=== PATIENT | female | born 1950 | race African-American/Black ===

== ENCOUNTER 2017-05-20 06:02 | Emergency (ER) | payer OTHER, MEDICARE ==
[~2017-05-20] VITALS: Ht 165.1 cm; Wt 69.0 kg
[~2017-05-20 06:02] MED LIST: ATOR40TA28 PO; INS7030 SQ; INSU100C6 SQ; LISI1TAB13 PO
[2017-05-20] MEDS ORDERED: CYCLOBENZAPRINE HCL 10 MG TABLET PO ONE (06:30)
[2017-05-20] MEDS ORDERED: IBUPROFEN 600 MG TABLET PO ONE (06:30)
[2017-05-20 06:33] LABS: GLUCOSE,POINT OF CARE 152 MG/DL (70-110)
[2017-05-20 06:57] VITALS: BP 180/98
== END 2017-05-20 07:23 | disposition home or self-care (01) ==
LOC: EMS 06:03
DX: M62.838 Other muscle spasm (principal); I10 Essential (primary) hypertension; E11.9 Type 2 diabetes mellitus without complications; Y04.0XXA Assault by unarmed brawl or fight, initial encounter; Y93.89 Activity, other specified; Y92.89 Other specified places as the place of occurrence of the external cause; Y99.0 Civilian activity done for income or pay
CPT/HCPCS: 82948; 82962; 99283

== ENCOUNTER 2017-05-23 14:38 | Emergency (ER) | payer MEDICARE, OTHER ==
[~2017-05-23] VITALS: Ht 165.1 cm; Wt 70.0 kg
[2017-05-23] MEDS ORDERED: CYCL10 PO (14:48)
[2017-05-23] MEDS ORDERED: IBUP-1506 PO (14:48)
[2017-05-23 16:33] VITALS: BP 108/70
== END 2017-05-23 16:58 | disposition home or self-care (01) ==
LOC: EMS 14:38
DX: Z02.89 Encounter for other administrative examinations (principal); I10 Essential (primary) hypertension; E11.9 Type 2 diabetes mellitus without complications
CPT/HCPCS: 99281

== ENCOUNTER 2018-03-07 15:47 | Inpatient (IN) | payer MEDICARE, MEDICAID ==
[~2018-03-07] VITALS: Ht 165.1 cm; Wt 65.4 kg
[~2018-03-07 15:47] MED LIST changes: -ATOR40TA28 PO; +CYCL10 PO; +IBUP-1506 PO; -INS7030 SQ; -INSU100C6 SQ; -LISI1TAB13 PO
[2018-03-07] MEDS ORDERED: LISI-661 PO (15:50)
[2018-03-07 15:58] LABS: GLUCOSE,POINT OF CARE 98 MG/DL (70-110)
[2018-03-07] MEDS ORDERED: CloNIDine HCL 0.2 MG TABLET PO ONE (19:15)
[2018-03-07 19:34] LABS: BASOPHILS % (AUTO) 1.2 % (0.0-2.0); EOSINOPHILS % (AUTO) 4.9 % (1.0-6.0); HEMATOCRIT 29.8 % (36-46); HEMOGLOBIN 10.1 g/dL (12.0-16.0); LYMPHOCYTES # (AUTO) 1.9 K/uL (1.0-4.8); LYMPHOCYTES % (AUTO) 25.2 % (22.0-44.0); MEAN CORPUSCULAR HGB CONC 33.8 G/dL (31.0-37.0); MEAN CORPUSCULAR VOLUME 83 fL (80-100); MONOCYTES # (AUTO) 0.5 K/uL (0.1-1.0); MONOCYTES % (AUTO) 6.2 % (2.0-9.0); NEUTROPHILS # (AUTO) 4.7 K/uL (1.8-7.7); NEUTROPHILS % (AUTO) 62.5 % (40.0-70.0); PLATELET COUNT (AUTO) 221 K/uL (150-450); RED BLOOD CELL COUNT(AUTO) 3.59 MIL/uL (4.00-5.20); RED CELL DISTRIBUTION WIDTH 12.6 % (11.5-14.5)
[2018-03-07 19:42] LABS: CALCIUM, TOTAL 9.7 mg/dL (8.8-10.5); CREATININE 3.2 mg/dL (0.60-1.30); POTASSIUM 4.3 mmol/L (3.5-5.1)
[2018-03-07 19:48] LABS: ALBUMIN 3.1 g/dL (3.4-5.0); BILIRUBIN,TOTAL 0.3 mg/dL (0.1-1.0); TOTAL PROTEIN, SERUM 7.1 g/dL (6.4-8.2)
[2018-03-07] MEDS ORDERED: MORPHINE SULFATE 2 MG/ML SYRINGE IVP PRN (22:45)
[2018-03-07] MEDS ORDERED: ACETAMINOPHEN 325 MG TABLET PO PRN (22:45)
[2018-03-07] MEDS ORDERED: ALBUTEROL SULFATE 2.5 MG/0.5 ML NEB SOLUTION NEB PRN (22:45)
[2018-03-07] MEDS ORDERED: IPRATROPIUM BROMIDE 0.5 MG/2.5 ML NEB SOLUTION NEB PRN (22:45)
[2018-03-07] MEDS ORDERED: ZOLPIDEM TARTRATE 5 MG TABLET PO PRN (22:45)
[2018-03-07] MEDS ORDERED: ONDANSETRON HCL 4 MG/2 ML VIAL IVP PRN (22:45)
[2018-03-07] MEDS: DEXTROSE 5%-0.45% SODIUM CHL 1,000 ML IV SCH (23:20)
[2018-03-07 23:44] LABS: APPEARANCE,URINE CLEAR (CLEAR); BILIRUBIN,URINE NEGATIVE (NEGATIVE); GLUCOSE, URINE (UA) NEGATIVE (NEGATIVE); KETONES,URINE NEGATIVE (NEGATIVE); LEUKOCYTE ESTERASE ,URINE SMALL (NEGATIVE); NITRATE,URINE NEGATIVE (NEGATIVE); OCCULT BLOOD,URINE NEGATIVE (NEGATIVE); PROTEIN,URINE SEE CONFIRM (NEGATIVE); UROBILINOGEN,URINE 0.2 mg/dL (<=1.0)
[2018-03-08] VITALS (7 sets, daily range): BP systolic 144–193; BP diastolic 70–85
[2018-03-08 00:09] LABS: BACTERIA,URINE Rare /HPF (None Seen); RBC,URINE 0-2 /HPF (0-2); SQUAMOUS EPITHELIAL CELL,UR Rare /LPF (None Seen); SULFOSALICYLIC ACID,URINE 2+ (Negative)
[2018-03-08 07:47] LABS: BASOPHILS % (AUTO) 0.9 % (0.0-2.0); EOSINOPHILS % (AUTO) 6.9 % (1.0-6.0); HEMATOCRIT 27.4 % (36-46); HEMOGLOBIN 9.4 g/dL (12.0-16.0); LYMPHOCYTES # (AUTO) 1.1 K/uL (1.0-4.8); LYMPHOCYTES % (AUTO) 20.4 % (22.0-44.0); MEAN CORPUSCULAR HEMOGLOBIN 28.7 pg (26.0-34.0); MEAN CORPUSCULAR HGB CONC 34.1 G/dL (31.0-37.0); MEAN CORPUSCULAR VOLUME 84 fL (80-100); MONOCYTES # (AUTO) 0.4 K/uL (0.1-1.0); MONOCYTES % (AUTO) 7.9 % (2.0-9.0); NEUTROPHILS # (AUTO) 3.3 K/uL (1.8-7.7); NEUTROPHILS % (AUTO) 63.9 % (40.0-70.0); PLATELET COUNT (AUTO) 186 K/uL (150-450); RED BLOOD CELL COUNT(AUTO) 3.26 MIL/uL (4.00-5.20); RED CELL DISTRIBUTION WIDTH 12.6 % (11.5-14.5)
[2018-03-08 07:57] LABS: PROTHROMBIN TIME 10.3 SEC (9.4-11.6)
[2018-03-08 08:04] LABS: HEMOGLOBIN A1C 5.7 % (4.5-6.2)
[2018-03-08 08:10] LABS: ALBUMIN 2.8 g/dL (3.4-5.0); BILIRUBIN,TOTAL 0.3 mg/dL (0.1-1.0); CALCIUM, TOTAL 8.7 mg/dL (8.8-10.5); CHOL/HDL RATIO 1.8 (3.9-5.7); CREATININE 3.04 mg/dL (0.60-1.30); MAGNESIUM 2.1 mg/dL (1.80-2.40); PHOSPHORUS 4.2 mg/dL (2.5-4.9); POTASSIUM 4.3 mmol/L (3.5-5.1); THYROID STIMULATING HORMONE 1.67 uIU/mL (0.36-3.74); TOTAL PROTEIN, SERUM 6.6 g/dL (6.4-8.2)
[2018-03-08] MEDS: HydrALAZINE HCL 25 MG TABLET PO SCH ×3 (09:18→23:58)
[2018-03-08] MEDS: PANTOPRAZOLE SODIUM 40 MG DR TABLET PO SCH (09:18)
[2018-03-08] MEDS: DEXTROSE 5%-0.45% SODIUM CHL 1,000 ML IV SCH ×2 (09:19→20:23)
[2018-03-08] MEDS: CHOLECALCIFEROL (VIT D3) 1,000 UNITS TABLET PO SCH (11:34)
[2018-03-08] MEDS: AmLODIPine BESYLATE 10 MG TABLET PO SCH (11:34)
[2018-03-08] MEDS ORDERED: CHOLECALCIFEROL (VIT D3) 1,000 UNITS TABLET PO SCH (16:15)
[2018-03-08 23:30] LABS: GLUCOMETER DEV NAME(LOC) 6N 2D; GLUCOSE,POINT OF CARE 189 MG/DL (70-110)
[2018-03-09] VITALS (8 sets, daily range): BP systolic 147–203; BP diastolic 75–96
[2018-03-09 01:00] LABS: CREATININE,URINE RANDOM 21.5 mg/dL (30.0-125.0)
[2018-03-09 07:10] LABS: CALCIUM, TOTAL 8.4 mg/dL (8.8-10.5); CREATININE 3.04 mg/dL (0.60-1.30); POTASSIUM 4.5 mmol/L (3.5-5.1); THYROID STIMULATING HORMONE 2.13 uIU/mL (0.36-3.74)
[2018-03-09 07:36] LABS: GLUCOMETER DEV NAME(LOC) 6N 1E; GLUCOSE,POINT OF CARE 148 MG/DL (70-110)
[2018-03-09] MEDS: CHOLECALCIFEROL (VIT D3) 1,000 UNITS TABLET PO SCH (08:12)
[2018-03-09] MEDS: HydrALAZINE HCL 25 MG TABLET PO SCH (08:12)
[2018-03-09] MEDS: PANTOPRAZOLE SODIUM 40 MG DR TABLET PO SCH (08:12)
[2018-03-09] MEDS: CloNIDine HCL 0.1 MG TABLET PO PRN ×2 (08:13→17:20)
[2018-03-09] MEDS: AmLODIPine BESYLATE 10 MG TABLET PO SCH (08:13)
[2018-03-09 12:15] LABS: GLUCOMETER DEV NAME(LOC) 6N 1E; GLUCOSE,POINT OF CARE 175 MG/DL (70-110)
[2018-03-09] MEDS: HydrALAZINE HCL 50 MG TABLET PO SCH ×3 (14:05→20:01)
[2018-03-09] MEDS: OxyCODONE HCL/ACETAMINOPHEN 5-325 MG TABLET PO PRN ×2 (16:16→19:59)
[2018-03-09] MEDS: DEXTROSE 5%-0.45% SODIUM CHL 1,000 ML IV SCH (18:57)
[2018-03-09] MEDS: MAGNESIUM HYDROXIDE SUSPENSION 30 ML UDCUP PO PRN (20:01)
[2018-03-09] MEDS ORDERED: HydrALAZINE HCL 25 MG TABLET PO SCH (21:00)
[2018-03-10] VITALS (7 sets, daily range): BP systolic 147–194; BP diastolic 77–93
[2018-03-10] MEDS: DEXTROSE 5%-0.45% SODIUM CHL 1,000 ML IV SCH ×2 (05:16→16:44)
[2018-03-10] MEDS: OxyCODONE HCL/ACETAMINOPHEN 5-325 MG TABLET PO PRN (06:30)
[2018-03-10] MEDS: HydrALAZINE HCL 50 MG TABLET PO SCH ×3 (07:51→20:22)
[2018-03-10] MEDS: CHOLECALCIFEROL (VIT D3) 1,000 UNITS TABLET PO SCH (07:51)
[2018-03-10] MEDS: PANTOPRAZOLE SODIUM 40 MG DR TABLET PO SCH (07:51)
[2018-03-10] MEDS: AmLODIPine BESYLATE 10 MG TABLET PO SCH (07:51)
[2018-03-10] MEDS ORDERED: GELATIN SPONGE,ABSORBABLE 12-7 MM TP ONE (08:33)
[2018-03-10] MEDS ORDERED: LIDOCAINE HCL/PF 1% 30 ML VIAL ONE (08:33)
[2018-03-10] MEDS ORDERED: FentaNYL CITRATE-PF 100 MCG/2 ML VIAL ONE (08:33)
[2018-03-10] MEDS ORDERED: MIDAZOLAM HCL 2 MG/2 ML VIAL ONE (08:33)
[2018-03-10] MEDS ORDERED: FLUMAZENIL 0.1 MG/ML 5 ML VIAL IVP ONE (08:33)
[2018-03-10] MEDS ORDERED: NALOXONE HCL 0.4 MG/ML VIAL ONE (08:33)
[2018-03-10] MEDS ORDERED: LABETALOL HCL 5 MG/ML 20 ML VIAL IVP ONE (08:45)
[2018-03-10] MEDS ORDERED: MIDAZOLAM HCL 2 MG/2 ML VIAL IVP ONE (09:55)
[2018-03-10] MEDS ORDERED: FentaNYL CITRATE-PF 100 MCG/2 ML VIAL IVP ONE (09:55)
[2018-03-10] MEDS: MAGNESIUM HYDROXIDE SUSPENSION 30 ML UDCUP PO PRN (14:24)
[2018-03-10] MEDS: CloNIDine HCL 0.1 MG TABLET PO PRN (20:22)
[2018-03-11] VITALS (8 sets, daily range): BP systolic 139–186; BP diastolic 71–98
[2018-03-11] MEDS: DEXTROSE 5%-0.45% SODIUM CHL 1,000 ML IV SCH ×2 (03:06→16:05)
[2018-03-11] MEDS: BISACODYL 10 MG RECTAL RECTAL SUPPOSITORY PR PRN ×2 (03:13→09:07)
[2018-03-11] MEDS: MAGNESIUM HYDROXIDE SUSPENSION 30 ML UDCUP PO PRN (06:05)
[2018-03-11] MEDS: CloNIDine HCL 0.1 MG TABLET PO PRN (06:05)
[2018-03-11 06:32] LABS: GLUCOMETER DEV NAME(LOC) 6N 1E; GLUCOSE,POINT OF CARE 163 MG/DL (70-110)
[2018-03-11] MEDS: AmLODIPine BESYLATE 10 MG TABLET PO SCH (09:06)
[2018-03-11] MEDS: PANTOPRAZOLE SODIUM 40 MG DR TABLET PO SCH (09:06)
[2018-03-11] MEDS: HydrALAZINE HCL 50 MG TABLET PO SCH ×3 (09:12→20:24)
[2018-03-11] MEDS: CHOLECALCIFEROL (VIT D3) 1,000 UNITS TABLET PO SCH (09:12)
[2018-03-11 09:38] LABS: BASOPHILS % (AUTO) 0.2 % (0.0-2.0); HEMATOCRIT 28.2 % (36-46); HEMOGLOBIN 9.7 g/dL (12.0-16.0); LYMPHOCYTES # (AUTO) 0.8 K/uL (1.0-4.8); LYMPHOCYTES % (AUTO) 11.8 % (22.0-44.0); MEAN CORPUSCULAR HEMOGLOBIN 28.3 pg (26.0-34.0); MEAN CORPUSCULAR HGB CONC 34.5 G/dL (31.0-37.0); MEAN CORPUSCULAR VOLUME 82 fL (80-100); MONOCYTES # (AUTO) 0.8 K/uL (0.1-1.0); MONOCYTES % (AUTO) 11.6 % (2.0-9.0); NEUTROPHILS # (AUTO) 5.1 K/uL (1.8-7.7); NEUTROPHILS % (AUTO) 74.4 % (40.0-70.0); PLATELET COUNT (AUTO) 210 K/uL (150-450); RED BLOOD CELL COUNT(AUTO) 3.44 MIL/uL (4.00-5.20); RED CELL DISTRIBUTION WIDTH 12.8 % (11.5-14.5)
[2018-03-11 09:45] LABS: CALCIUM, TOTAL 8.3 mg/dL (8.8-10.5)
[2018-03-11 09:48] LABS: MAGNESIUM 2.4 mg/dL (1.80-2.40); PHOSPHORUS 3.3 mg/dL (2.5-4.9)
[2018-03-11 14:15] LABS: GLUCOMETER DEV NAME(LOC) 6N 1E; GLUCOSE,POINT OF CARE 157 MG/DL (70-110)
[2018-03-11] MEDS: OxyCODONE HCL/ACETAMINOPHEN 5-325 MG TABLET PO PRN (16:00)
[2018-03-11 23:43] LABS: GLUCOMETER DEV NAME(LOC) 6N 1E; GLUCOSE,POINT OF CARE 168 MG/DL (70-110)
[2018-03-12] MEDS: DEXTROSE 5%-0.45% SODIUM CHL 1,000 ML IV SCH ×2 (02:36→13:20)
[2018-03-12] MEDS: OxyCODONE HCL/ACETAMINOPHEN 5-325 MG TABLET PO PRN (02:42)
[2018-03-12 03:43] LABS: GLUCOMETER DEV NAME(LOC) 6N 2D; GLUCOSE,POINT OF CARE 181 MG/DL (70-110)
[2018-03-12 04:00] VITALS: BP 158/89
[2018-03-12] MEDS: CloNIDine HCL 0.1 MG TABLET PO PRN (07:58)
[2018-03-12] MEDS: HydrALAZINE HCL 50 MG TABLET PO SCH ×2 (07:59→16:16)
[2018-03-12] MEDS: PANTOPRAZOLE SODIUM 40 MG DR TABLET PO SCH (07:59)
[2018-03-12] MEDS: AmLODIPine BESYLATE 10 MG TABLET PO SCH (07:59)
[2018-03-12] MEDS: CHOLECALCIFEROL (VIT D3) 1,000 UNITS TABLET PO SCH (07:59)
[2018-03-12 08:24] VITALS: BP 184/102
[2018-03-12 09:19] VITALS: BP 160/87
[2018-03-12] MEDS ORDERED: METOPROLOL TARTRATE 25 MG TABLET PO SCH (09:30)
[2018-03-12 11:50] VITALS: BP_SYST 161; BP_SYST 180; BP_DIAS 87; BP_DIAS 94
[2018-03-12 11:54] LABS: GLUCOMETER DEV NAME(LOC) 6N 2D; GLUCOSE,POINT OF CARE 155 MG/DL (70-110)
[2018-03-12 11:58] LABS: GLUCOMETER DEV NAME(LOC) 6N 1E; GLUCOSE,POINT OF CARE 167 MG/DL (70-110)
[2018-03-12] MEDS ORDERED: VITAD1000 PO (14:47)
[2018-03-12] MEDS ORDERED: AMLO-512 PO (14:47)
[2018-03-12] MEDS ORDERED: HYDR-2924 PO (14:47)
[2018-03-12] MEDS ORDERED: METO25 PO (14:48)
== END 2018-03-12 17:03 | disposition home or self-care (01) | DRG 304 ==
LOC: EMS 15:51 → 6N 03-08 01:31
PROVIDERS: ADMIT Internal Medicine; ATTEND Internal Medicine
PROC: 0TB13ZX Excision of Left Kidney, Percutaneous Approach, Diagnostic (ICD-10-PCS; principal; 2018-03-10)
DX: I16.1 Hypertensive emergency (principal); N17.0 Acute kidney failure with tubular necrosis; N18.4 Chronic kidney disease, stage 4 (severe); E11.22 Type 2 diabetes mellitus with diabetic chronic kidney disease; E11.65 Type 2 diabetes mellitus with hyperglycemia; E55.9 Vitamin D deficiency, unspecified; D63.8 Anemia in other chronic diseases classified elsewhere; I12.9 Hypertensive chronic kidney disease with stage 1 through stage 4 chronic kidney disease, or unspecified chronic kidney disease; K21.9 Gastro-esophageal reflux disease without esophagitis; K58.9 Irritable bowel syndrome, unspecified; K73.9 Chronic hepatitis, unspecified; M19.90 Unspecified osteoarthritis, unspecified site; Z79.899 Other long term (current) drug therapy; Z82.49 Family history of ischemic heart disease and other diseases of the circulatory system
CPT/HCPCS: 50200; 70450; 76770; 82271; 82306; 82570; 83036; 83735; 84100; 84156; 84300; 84443; 84540; 93005; 99285; J2250; J2310; J2405; J3010; J3490

== ENCOUNTER 2018-05-02 13:03 | Emergency (ER) | payer MEDICARE, MEDICAID ==
[~2018-05-02] VITALS: Ht 165.1 cm; Wt 75.0 kg
[~2018-05-02 13:03] MED LIST changes: +AMLO-512 PO; -CYCL10 PO; +HYDR-2924 PO; -IBUP-1506 PO; +METO25 PO; +VITAD1000 PO
[2018-05-02 13:11] VITALS: BP 159/97
[2018-05-02] MEDS ORDERED: CHL25 PO (13:15)
[2018-05-02 13:24] LABS: GLUCOSE,POINT OF CARE 186 MG/DL (70-110)
== END 2018-05-02 15:30 | disposition left against medical advice (07) ==
LOC: EMS 13:04
DX: R53.1 Weakness (principal); R63.0 Anorexia; I12.9 Hypertensive chronic kidney disease with stage 1 through stage 4 chronic kidney disease, or unspecified chronic kidney disease; E11.22 Type 2 diabetes mellitus with diabetic chronic kidney disease; N18.9 Chronic kidney disease, unspecified; Z53.21 Procedure and treatment not carried out due to patient leaving prior to being seen by health care provider

== ENCOUNTER 2019-03-01 13:40 | Inpatient (IN) | payer MEDICARE, OTHER ==
[~2019-03-01] VITALS: Ht 157.5 cm; Wt 42.0 kg
[~2019-03-01 13:40] MED LIST changes: -AMLO-512 PO; +AMLO10TA7 PO; +CHL25 PO; +CLON-570 PO; -VITAD1000 PO
[2019-03-01 18:40] LABS: GLUCOMETER DEV NAME(LOC) 2WR.1; GLUCOSE,POINT OF CARE 136 MG/DL (70-110)
[2019-03-01 19:59] VITALS: BP 142/83
[2019-03-01] MEDS: HydrALAZINE HCL 50 MG TABLET PO SCH (20:34)
[2019-03-01] MEDS: PANTOPRAZOLE SODIUM 40 MG DR TABLET PO SCH (20:34)
[2019-03-01] MEDS: METOPROLOL TARTRATE 25 MG TABLET PO SCH (20:34)
[2019-03-01] MEDS: HEPARIN SODIUM,PORCINE 5,000 UNITS/ML VIAL SQ SCH (20:34)
[2019-03-01] MEDS: DOCUSATE SODIUM 100 MG CAPSULE PO SCH (20:34)
[2019-03-01] MEDS: SENNA 187 MG TABLET PO SCH (20:34)
[2019-03-01 22:15] LABS: GLUCOMETER DEV NAME(LOC) 2WR.1; GLUCOSE,POINT OF CARE 125 MG/DL (70-110)
[2019-03-01] MEDS: MELATONIN 3 MG TABLET PO PRN (23:21)
[2019-03-02] VITALS: BP 152/86
[2019-03-02] MEDS ORDERED: ASPI81 PO (02:34)
[2019-03-02] MEDS ORDERED: FAMO20 PO (02:34)
[2019-03-02] MEDS ORDERED: GABA-529 PO (02:34)
[2019-03-02 06:11] LABS: GLUCOMETER DEV NAME(LOC) 2WR.1; GLUCOSE,POINT OF CARE 69 MG/DL (70-110)
[2019-03-02 06:39] LABS: BASOPHILS % (AUTO) 0.3 % (0.0-2.0); EOSINOPHILS % (AUTO) 0.9 % (1.0-6.0); HEMATOCRIT 24.9 % (36-46); HEMOGLOBIN 8.4 g/dL (12.0-16.0); LYMPHOCYTES # (AUTO) 1.4 K/uL (1.0-4.8); LYMPHOCYTES % (AUTO) 15.6 % (22.0-44.0); MEAN CORPUSCULAR HEMOGLOBIN 27.9 pg (26.0-34.0); MEAN CORPUSCULAR HGB CONC 33.7 G/dL (31.0-37.0); MEAN CORPUSCULAR VOLUME 83 fL (80-100); MONOCYTES # (AUTO) 0.8 K/uL (0.1-1.0); MONOCYTES % (AUTO) 8.9 % (2.0-9.0); NEUTROPHILS # (AUTO) 6.6 K/uL (1.8-7.7); NEUTROPHILS % (AUTO) 74.3 % (40.0-70.0); PLATELET COUNT (AUTO) 193 K/uL (150-450); RED CELL DISTRIBUTION WIDTH 16.4 % (11.5-14.5)
[2019-03-02 06:50] LABS: GLUCOMETER DEV NAME(LOC) 2WR.2; GLUCOSE,POINT OF CARE 75 MG/DL (70-110)
[2019-03-02 06:56] LABS: ALBUMIN 2.5 g/dL (3.4-5.0); BILIRUBIN,TOTAL 0.3 mg/dL (0.1-1.0); CREATININE 3.57 mg/dL (0.60-1.30); POTASSIUM 3.9 mmol/L (3.5-5.1); TOTAL PROTEIN, SERUM 6.1 g/dL (6.4-8.2)
[2019-03-02 07:20] VITALS: BP 147/82
[2019-03-02] MEDS ORDERED: EPOETIN ALFA 10,000 UNITS/ML 2 ML VIAL SQ SCH (09:00)
[2019-03-02] MEDS: METOPROLOL TARTRATE 25 MG TABLET PO SCH ×2 (09:07→21:00)
[2019-03-02] MEDS: AmLODIPine BESYLATE 10 MG TABLET PO SCH (09:07)
[2019-03-02] MEDS: HEPARIN SODIUM,PORCINE 5,000 UNITS/ML VIAL SQ SCH ×3 (09:07→23:17)
[2019-03-02] MEDS: LEVOFLOXACIN 250 MG TABLET PO SCH (09:07)
[2019-03-02] MEDS: DOCUSATE SODIUM 100 MG CAPSULE PO SCH ×2 (09:07→21:00)
[2019-03-02] MEDS: HydrALAZINE HCL 50 MG TABLET PO SCH ×3 (09:07→21:00)
[2019-03-02 13:00] LABS: GLUCOMETER DEV NAME(LOC) 2WR.2; GLUCOSE,POINT OF CARE 93 MG/DL (70-110)
[2019-03-02] MEDS: ACETAMINOPHEN 325 MG TABLET PO PRN ×2 (13:23→18:08)
[2019-03-02] MEDS ORDERED: SODIUM CHLORIDE 0.9% 2,000 ML IV ONE (13:28)
[2019-03-02] MEDS ORDERED: VITAMIN B COMP/VIT C/FOLIC ACID CAPSULE PO SCH (17:00)
[2019-03-02 18:08] VITALS: BP 148/75
[2019-03-02 19:02] LABS: GLUCOMETER DEV NAME(LOC) 2WR.2; GLUCOSE,POINT OF CARE 88 MG/DL (70-110)
[2019-03-02] MEDS: PANTOPRAZOLE SODIUM 40 MG DR TABLET PO SCH (20:59)
[2019-03-02] MEDS: SENNA 187 MG TABLET PO SCH (21:00)
[2019-03-02] MEDS: CHLORHEXIDINE GLUCONATE 4% 118 ML TOPICAL LIQUID TP SCH (21:00)
[2019-03-02] MEDS: MELATONIN 3 MG TABLET PO PRN (21:00)
[2019-03-02 23:35] LABS: GLUCOMETER DEV NAME(LOC) 2WR.2; GLUCOSE,POINT OF CARE 112 MG/DL (70-110)
[2019-03-03] VITALS: BP 149/89
[2019-03-03 06:35] LABS: GLUCOMETER DEV NAME(LOC) 2WR.1; GLUCOSE,POINT OF CARE 86 MG/DL (70-110)
[2019-03-03 07:10] VITALS: BP 153/76
[2019-03-03] MEDS: VITAMIN B COMP/VIT C/FOLIC ACID CAPSULE PO SCH (08:18)
[2019-03-03] MEDS: LEVOFLOXACIN 250 MG TABLET PO SCH (08:18)
[2019-03-03] MEDS: HydrALAZINE HCL 50 MG TABLET PO SCH ×3 (08:18→20:47)
[2019-03-03] MEDS: DOCUSATE SODIUM 100 MG CAPSULE PO SCH ×2 (08:19→20:47)
[2019-03-03] MEDS: METOPROLOL TARTRATE 25 MG TABLET PO SCH ×2 (08:19→20:47)
[2019-03-03] MEDS: HEPARIN SODIUM,PORCINE 5,000 UNITS/ML VIAL SQ SCH ×3 (08:19→20:29)
[2019-03-03] MEDS: AmLODIPine BESYLATE 10 MG TABLET PO SCH (08:20)
[2019-03-03 11:25] VITALS: BP 145/93
[2019-03-03 12:30] LABS: GLUCOMETER DEV NAME(LOC) 2WR.2; GLUCOSE,POINT OF CARE 92 MG/DL (70-110)
[2019-03-03] MEDS: ASPIRIN 81 MG EC TABLET PO SCH (13:18)
[2019-03-03] MEDS: ACETAMINOPHEN 325 MG TABLET PO PRN (15:07)
[2019-03-03 17:56] LABS: GLUCOMETER DEV NAME(LOC) 2WR.1; GLUCOSE,POINT OF CARE 73 MG/DL (70-110)
[2019-03-03 18:00] VITALS: BP 141/80
[2019-03-03] MEDS: DOCUSATE SODIUM 283 MG/5 ML MINI-ENEMA PR PRN (20:10)
[2019-03-03] MEDS: CHLORHEXIDINE GLUCONATE 4% 118 ML TOPICAL LIQUID TP SCH (20:29)
[2019-03-03] MEDS: PANTOPRAZOLE SODIUM 40 MG DR TABLET PO SCH (20:47)
[2019-03-03] MEDS: SENNA 187 MG TABLET PO SCH (20:47)
[2019-03-03 22:20] LABS: GLUCOMETER DEV NAME(LOC) 2WR.1; GLUCOSE,POINT OF CARE 81 MG/DL (70-110)
[2019-03-03 22:21] LABS: GLUCOMETER DEV NAME(LOC) 2WR.2; GLUCOSE,POINT OF CARE 135 MG/DL (70-110)
[2019-03-04 00:02] VITALS: BP 152/86
[2019-03-04] MEDS: ACETAMINOPHEN 325 MG TABLET PO PRN (01:05)
[2019-03-04 06:20] LABS: GLUCOMETER DEV NAME(LOC) 2WR.1; GLUCOSE,POINT OF CARE 89 MG/DL (70-110)
[2019-03-04 07:53] VITALS: BP 151/73
[2019-03-04] MEDS: LEVOFLOXACIN 250 MG TABLET PO SCH (08:29)
[2019-03-04] MEDS: DOCUSATE SODIUM 100 MG CAPSULE PO SCH ×2 (08:30→20:39)
[2019-03-04] MEDS: EPOETIN ALFA 10,000 UNITS/ML 2 ML VIAL SQ SCH (08:30)
[2019-03-04] MEDS: ASPIRIN 81 MG EC TABLET PO SCH (08:30)
[2019-03-04] MEDS: HEPARIN SODIUM,PORCINE 5,000 UNITS/ML VIAL SQ SCH ×3 (08:30→20:25)
[2019-03-04] MEDS: VITAMIN B COMP/VIT C/FOLIC ACID CAPSULE PO SCH (08:30)
[2019-03-04] MEDS: AmLODIPine BESYLATE 10 MG TABLET PO SCH (08:31)
[2019-03-04] MEDS: METOPROLOL TARTRATE 25 MG TABLET PO SCH ×2 (08:31→20:25)
[2019-03-04] MEDS: HydrALAZINE HCL 50 MG TABLET PO SCH ×3 (08:31→20:24)
[2019-03-04 12:55] LABS: GLUCOMETER DEV NAME(LOC) 2WR.1; GLUCOSE,POINT OF CARE 100 MG/DL (70-110)
[2019-03-04 17:01] LABS: CHOL/HDL RATIO 1.5 (3.9-5.7); CREATININE 1.43 mg/dL (0.60-1.30); POTASSIUM 3.1 mmol/L (3.5-5.1); THYROID STIMULATING HORMONE 0.84 uIU/mL (0.36-3.74)
[2019-03-04 17:02] LABS: PHOSPHORUS 1.2 mg/dL (2.5-4.9)
[2019-03-04] MEDS ORDERED: SODIUM PHOS,M-BASIC-D-BASIC 10 MEQ in DEXTROSE 5%-WATER 50 ML IV ONE (17:15)
[2019-03-04 19:00] VITALS: BP 157/80
[2019-03-04] MEDS: ATORVASTATIN CALCIUM 40 MG TABLET PO SCH (20:24)
[2019-03-04] MEDS: PANTOPRAZOLE SODIUM 40 MG DR TABLET PO SCH (20:25)
[2019-03-04] MEDS: SENNA 187 MG TABLET PO SCH (20:38)
[2019-03-04] MEDS: CHLORHEXIDINE GLUCONATE 4% 118 ML TOPICAL LIQUID TP SCH (20:39)
[2019-03-04] MEDS: SOD FERRIC GLUC COMPLX/SUCROSE 125 MG in SODIUM CHLORIDE 0.9% 100 ML IV PRN (20:58)
[2019-03-04 21:49] VITALS: BP 159/78
[2019-03-05 00:06] VITALS: BP 160/84
[2019-03-05 06:31] LABS: GLUCOMETER DEV NAME(LOC) 2WR.2; GLUCOSE,POINT OF CARE 88 MG/DL (70-110)
[2019-03-05 07:29] LABS: CALCIUM, TOTAL 9.1 mg/dL (8.8-10.5); CREATININE 2.03 mg/dL (0.60-1.30); MAGNESIUM 1.4 mg/dL (1.80-2.40); PHOSPHORUS 1.7 mg/dL (2.5-4.9); POTASSIUM 3.2 mmol/L (3.5-5.1)
[2019-03-05 08:13] VITALS: BP 151/86
[2019-03-05] MEDS: HydrALAZINE HCL 50 MG TABLET PO SCH ×3 (08:58→20:53)
[2019-03-05] MEDS: METOPROLOL TARTRATE 25 MG TABLET PO SCH ×2 (08:58→20:53)
[2019-03-05] MEDS: AmLODIPine BESYLATE 10 MG TABLET PO SCH (08:58)
[2019-03-05] MEDS: LEVOFLOXACIN 250 MG TABLET PO SCH (08:59)
[2019-03-05] MEDS: VITAMIN B COMP/VIT C/FOLIC ACID CAPSULE PO SCH (08:59)
[2019-03-05] MEDS: HEPARIN SODIUM,PORCINE 5,000 UNITS/ML VIAL SQ SCH ×3 (08:59→20:53)
[2019-03-05] MEDS: DOCUSATE SODIUM 100 MG CAPSULE PO SCH ×2 (08:59→20:53)
[2019-03-05] MEDS: ASPIRIN 81 MG EC TABLET PO SCH (08:59)
[2019-03-05] MEDS ORDERED: POTASSIUM PHOS/SODIUM PHOS MIXTURE 1 POWDER PACKET PO ONE (10:45)
[2019-03-05] MEDS ORDERED: MAGNESIUM OXIDE 400 MG TABLET PO ONE (10:45)
[2019-03-05 16:20] VITALS: BP 160/94
[2019-03-05 20:52] VITALS: BP 163/95
[2019-03-05] MEDS: ATORVASTATIN CALCIUM 40 MG TABLET PO SCH (20:53)
[2019-03-05] MEDS: PANTOPRAZOLE SODIUM 40 MG DR TABLET PO SCH (20:53)
[2019-03-05] MEDS: SENNA 187 MG TABLET PO SCH (20:53)
[2019-03-05] MEDS: CHLORHEXIDINE GLUCONATE 4% 118 ML TOPICAL LIQUID TP SCH (21:01)
[2019-03-06 00:30] VITALS: BP 138/72
[2019-03-06] MEDS: MELATONIN 3 MG TABLET PO PRN (00:49)
[2019-03-06] MEDS ORDERED: FOLI0.8T2 PO (03:14)
[2019-03-06 06:14] LABS: CREATININE 3.1 mg/dL (0.60-1.30); MAGNESIUM 1.5 mg/dL (1.80-2.40); POTASSIUM 3.5 mmol/L (3.5-5.1)
[2019-03-06 06:41] LABS: GLUCOMETER DEV NAME(LOC) 2WR.2; GLUCOSE,POINT OF CARE 98 MG/DL (70-110)
[2019-03-06] MEDS: AmLODIPine BESYLATE 10 MG TABLET PO SCH (07:36)
[2019-03-06] MEDS: VITAMIN B COMP/VIT C/FOLIC ACID CAPSULE PO SCH (07:36)
[2019-03-06] MEDS: HEPARIN SODIUM,PORCINE 5,000 UNITS/ML VIAL SQ SCH ×3 (07:36→20:20)
[2019-03-06] MEDS: LEVOFLOXACIN 250 MG TABLET PO SCH (07:36)
[2019-03-06] MEDS: DOCUSATE SODIUM 100 MG CAPSULE PO SCH ×2 (07:36→20:20)
[2019-03-06] MEDS: HydrALAZINE HCL 50 MG TABLET PO SCH ×3 (07:36→20:20)
[2019-03-06] MEDS: ASPIRIN 81 MG EC TABLET PO SCH (07:36)
[2019-03-06] MEDS: METOPROLOL TARTRATE 25 MG TABLET PO SCH ×2 (07:36→20:20)
[2019-03-06 10:04] VITALS: BP 150/82
[2019-03-06 15:50] VITALS: BP 152/93
[2019-03-06] MEDS: DOCUSATE SODIUM 283 MG/5 ML MINI-ENEMA PR PRN (19:53)
[2019-03-06 20:16] VITALS: BP 156/83
[2019-03-06] MEDS: PANTOPRAZOLE SODIUM 40 MG DR TABLET PO SCH (20:20)
[2019-03-06] MEDS: SENNA 187 MG TABLET PO SCH (20:20)
[2019-03-06] MEDS: ATORVASTATIN CALCIUM 40 MG TABLET PO SCH (20:20)
[2019-03-06] MEDS: CHLORHEXIDINE GLUCONATE 4% 118 ML TOPICAL LIQUID TP SCH (20:20)
[2019-03-07 00:30] VITALS: BP 152/78
[2019-03-07 05:45] LABS: GLUCOMETER DEV NAME(LOC) 2WR.1B; GLUCOSE,POINT OF CARE 101 MG/DL (70-110)
[2019-03-07 08:01] VITALS: BP 150/78
[2019-03-07] MEDS: ASPIRIN 81 MG EC TABLET PO SCH (08:24)
[2019-03-07] MEDS: DOCUSATE SODIUM 100 MG CAPSULE PO SCH ×2 (08:24→20:31)
[2019-03-07] MEDS: VITAMIN B COMP/VIT C/FOLIC ACID CAPSULE PO SCH (08:24)
[2019-03-07] MEDS: HEPARIN SODIUM,PORCINE 5,000 UNITS/ML VIAL SQ SCH ×3 (08:25→20:31)
[2019-03-07] MEDS: EPOETIN ALFA 10,000 UNITS/ML 2 ML VIAL SQ SCH (08:25)
[2019-03-07] MEDS: LEVOFLOXACIN 250 MG TABLET PO SCH (08:25)
[2019-03-07] MEDS: HydrALAZINE HCL 50 MG TABLET PO SCH ×3 (08:26→20:31)
[2019-03-07] MEDS: AmLODIPine BESYLATE 10 MG TABLET PO SCH (08:26)
[2019-03-07] MEDS: METOPROLOL TARTRATE 25 MG TABLET PO SCH ×2 (08:26→20:31)
[2019-03-07] MEDS ORDERED: HEPARIN SODIUM,PORCINE 1,000 UNITS/ML VIAL IVP ONE (12:00)
[2019-03-07 15:30] VITALS: BP 159/105
[2019-03-07] MEDS: ACETAMINOPHEN 325 MG TABLET PO PRN (17:07)
[2019-03-07 20:25] VITALS: BP 149/96
[2019-03-07] MEDS: SOD FERRIC GLUC COMPLX/SUCROSE 125 MG in SODIUM CHLORIDE 0.9% 100 ML IV PRN (20:29)
[2019-03-07] MEDS: CALCITRIOL 1 MCG/ML AMP IVP SCH (20:30)
[2019-03-07] MEDS: ATORVASTATIN CALCIUM 40 MG TABLET PO SCH (20:31)
[2019-03-07] MEDS: SENNA 187 MG TABLET PO SCH (20:31)
[2019-03-07] MEDS: PANTOPRAZOLE SODIUM 40 MG DR TABLET PO SCH (20:31)
[2019-03-07] MEDS: DICLOFENAC SODIUM 1% 100 GM GEL [4GM] TP SCH (20:32)
[2019-03-07] MEDS: CHLORHEXIDINE GLUCONATE 4% 118 ML TOPICAL LIQUID TP SCH (20:32)
[2019-03-08] VITALS (13 sets, daily range): BP systolic 138–185; BP diastolic 69–115
[2019-03-08 06:45] LABS: GLUCOMETER DEV NAME(LOC) 2WR.1B; GLUCOSE,POINT OF CARE 100 MG/DL (70-110)
[2019-03-08] MEDS: DOCUSATE SODIUM 100 MG CAPSULE PO SCH ×2 (08:38→21:32)
[2019-03-08] MEDS: METOPROLOL TARTRATE 25 MG TABLET PO SCH ×2 (08:38→21:32)
[2019-03-08] MEDS: VITAMIN B COMP/VIT C/FOLIC ACID CAPSULE PO SCH (08:39)
[2019-03-08] MEDS: ASPIRIN 81 MG EC TABLET PO SCH (08:39)
[2019-03-08] MEDS: AmLODIPine BESYLATE 10 MG TABLET PO SCH (08:39)
[2019-03-08] MEDS: LEVOFLOXACIN 250 MG TABLET PO SCH (08:39)
[2019-03-08] MEDS: HydrALAZINE HCL 50 MG TABLET PO SCH ×3 (08:39→21:32)
[2019-03-08] MEDS: HEPARIN SODIUM,PORCINE 5,000 UNITS/ML VIAL SQ SCH ×3 (08:40→21:32)
[2019-03-08] MEDS: DICLOFENAC SODIUM 1% 100 GM GEL [4GM] TP SCH ×3 (08:40→21:32)
[2019-03-08] MEDS ORDERED: CALCITRIOL 1 MCG/ML AMP IVP SCH (09:00)
[2019-03-08] MEDS: ACETAMINOPHEN 325 MG TABLET PO PRN (19:57)
[2019-03-08] MEDS: DOXAZOSIN MESYLATE 2 MG TABLET PO SCH (21:32)
[2019-03-08] MEDS: ATORVASTATIN CALCIUM 40 MG TABLET PO SCH (21:32)
[2019-03-08] MEDS: SENNA 187 MG TABLET PO SCH (21:32)
[2019-03-08] MEDS: PANTOPRAZOLE SODIUM 40 MG DR TABLET PO SCH (21:32)
[2019-03-08] MEDS: CHLORHEXIDINE GLUCONATE 4% 118 ML TOPICAL LIQUID TP SCH (21:33)
[2019-03-09] MEDS ORDERED: DOXA2TAB PO (02:29)
[2019-03-09] MEDS ORDERED: CALC25 PO (02:29)
[2019-03-09 02:30] VITALS: BP 138/73
[2019-03-09 07:24] VITALS: BP 144/89
[2019-03-09] MEDS: ASPIRIN 81 MG EC TABLET PO SCH (08:58)
[2019-03-09] MEDS: DOCUSATE SODIUM 100 MG CAPSULE PO SCH ×2 (08:58→21:00)
[2019-03-09] MEDS: VITAMIN B COMP/VIT C/FOLIC ACID CAPSULE PO SCH (08:58)
[2019-03-09] MEDS: DICLOFENAC SODIUM 1% 100 GM GEL [4GM] TP SCH ×3 (08:59→20:59)
[2019-03-09] MEDS: HEPARIN SODIUM,PORCINE 5,000 UNITS/ML VIAL SQ SCH ×3 (08:59→21:00)
[2019-03-09] MEDS: EPOETIN ALFA 10,000 UNITS/ML 2 ML VIAL SQ SCH (08:59)
[2019-03-09] MEDS: HydrALAZINE HCL 50 MG TABLET PO SCH ×3 (09:00→21:00)
[2019-03-09] MEDS: METOPROLOL TARTRATE 25 MG TABLET PO SCH ×2 (09:00→21:01)
[2019-03-09] MEDS: AmLODIPine BESYLATE 10 MG TABLET PO SCH (09:00)
[2019-03-09] MEDS ORDERED: SODIUM CHLORIDE 0.9% 2,000 ML IV ONE (13:06)
[2019-03-09] MEDS: SOD FERRIC GLUC COMPLX/SUCROSE 125 MG in SODIUM CHLORIDE 0.9% 100 ML IV PRN (16:31)
[2019-03-09] MEDS: CALCITRIOL 1 MCG/ML AMP IVP SCH (16:33)
[2019-03-09 16:50] LABS: GLUCOMETER DEV NAME(LOC) 2WR.1B; GLUCOSE,POINT OF CARE 100 MG/DL (70-110)
[2019-03-09] MEDS ORDERED: HEPARIN SODIUM,PORCINE 1,000 UNITS/ML VIAL IVP ONE (17:05)
[2019-03-09 17:40] VITALS: BP 156/102
[2019-03-09] MEDS: ACETAMINOPHEN 325 MG TABLET PO PRN (17:48)
[2019-03-09 18:00] VITALS: BP 159/101
[2019-03-09] MEDS: DOCUSATE SODIUM 283 MG/5 ML MINI-ENEMA PR PRN (18:37)
[2019-03-09 19:44] LABS: BASOPHILS % (AUTO) 0.4 % (0.0-2.0); EOSINOPHILS % (AUTO) 1.2 % (1.0-6.0); HEMATOCRIT 28.8 % (36-46); HEMOGLOBIN 9.4 g/dL (12.0-16.0); LYMPHOCYTES # (AUTO) 1.2 K/uL (1.0-4.8); LYMPHOCYTES % (AUTO) 13.1 % (22.0-44.0); MEAN CORPUSCULAR HEMOGLOBIN 27.5 pg (26.0-34.0); MEAN CORPUSCULAR HGB CONC 32.7 G/dL (31.0-37.0); MEAN CORPUSCULAR VOLUME 84 fL (80-100); MONOCYTES # (AUTO) 0.8 K/uL (0.1-1.0); MONOCYTES % (AUTO) 9.6 % (2.0-9.0); NEUTROPHILS # (AUTO) 6.6 K/uL (1.8-7.7); NEUTROPHILS % (AUTO) 75.7 % (40.0-70.0); PLATELET COUNT (AUTO) 176 K/uL (150-450); RED BLOOD CELL COUNT(AUTO) 3.42 MIL/uL (4.00-5.20); RED CELL DISTRIBUTION WIDTH 17.5 % (11.5-14.5)
[2019-03-09 19:57] LABS: MAGNESIUM 1.4 mg/dL (1.80-2.40); PHOSPHORUS 1.8 mg/dL (2.5-4.9); POTASSIUM 3.8 mmol/L (3.5-5.1)
[2019-03-09 20:18] LABS: CREATININE 1.83 mg/dL (0.60-1.30)
[2019-03-09 20:28] VITALS: BP 145/80
[2019-03-09] MEDS: CHLORHEXIDINE GLUCONATE 4% 118 ML TOPICAL LIQUID TP SCH (20:59)
[2019-03-09] MEDS: DOXAZOSIN MESYLATE 2 MG TABLET PO SCH (21:00)
[2019-03-09] MEDS: SENNA 187 MG TABLET PO SCH (21:00)
[2019-03-09] MEDS: ATORVASTATIN CALCIUM 40 MG TABLET PO SCH (21:00)
[2019-03-09] MEDS: PANTOPRAZOLE SODIUM 40 MG DR TABLET PO SCH (21:01)
[2019-03-10] VITALS: BP 150/81
[2019-03-10] MEDS ORDERED: SODIUM CHLORIDE 0.9% 100 ML ONE (00:20)
[2019-03-10] MEDS: ACETAMINOPHEN 325 MG TABLET PO PRN (01:25)
[2019-03-10] MEDS ORDERED: MAGNESIUM SULFATE 1 GM in DEXTROSE 5%-WATER 50 ML IV ONE (05:00)
[2019-03-10 08:20] VITALS: BP 144/89
[2019-03-10] MEDS: DICLOFENAC SODIUM 1% 100 GM GEL [4GM] TP SCH ×3 (09:00→21:08)
[2019-03-10] MEDS: METOPROLOL TARTRATE 25 MG TABLET PO SCH ×2 (09:05→21:08)
[2019-03-10] MEDS: DOCUSATE SODIUM 100 MG CAPSULE PO SCH ×2 (09:05→21:08)
[2019-03-10] MEDS: HydrALAZINE HCL 50 MG TABLET PO SCH ×3 (09:06→21:16)
[2019-03-10] MEDS: AmLODIPine BESYLATE 10 MG TABLET PO SCH (09:06)
[2019-03-10] MEDS: ASPIRIN 81 MG EC TABLET PO SCH (09:07)
[2019-03-10] MEDS: VITAMIN B COMP/VIT C/FOLIC ACID CAPSULE PO SCH (09:07)
[2019-03-10] MEDS: HEPARIN SODIUM,PORCINE 5,000 UNITS/ML VIAL SQ SCH ×3 (09:07→21:09)
[2019-03-10] MEDS: CALCITRIOL 0.25 MCG CAPSULE PO SCH (16:10)
[2019-03-10 19:42] VITALS: BP 143/87
[2019-03-10] MEDS: DOCUSATE SODIUM 283 MG/5 ML MINI-ENEMA PR PRN (21:08)
[2019-03-10] MEDS: PANTOPRAZOLE SODIUM 40 MG DR TABLET PO SCH (21:08)
[2019-03-10] MEDS: ATORVASTATIN CALCIUM 40 MG TABLET PO SCH (21:08)
[2019-03-10] MEDS: CHLORHEXIDINE GLUCONATE 4% 118 ML TOPICAL LIQUID TP SCH (21:08)
[2019-03-10] MEDS: DOXAZOSIN MESYLATE 2 MG TABLET PO SCH (21:09)
[2019-03-10] MEDS: SENNA 187 MG TABLET PO SCH (21:09)
[2019-03-11 02:48] VITALS: BP 143/71
[2019-03-11] MEDS: ACETAMINOPHEN 325 MG TABLET PO PRN ×2 (02:48→18:23)
[2019-03-11 03:12] VITALS: BP 143/71
[2019-03-11 08:30] VITALS: BP 140/78
[2019-03-11] MEDS: HEPARIN SODIUM,PORCINE 5,000 UNITS/ML VIAL SQ SCH ×3 (08:44→20:37)
[2019-03-11] MEDS: AmLODIPine BESYLATE 10 MG TABLET PO SCH (08:45)
[2019-03-11] MEDS: DOCUSATE SODIUM 100 MG CAPSULE PO SCH ×2 (08:45→20:38)
[2019-03-11] MEDS: HydrALAZINE HCL 50 MG TABLET PO SCH ×3 (08:45→20:38)
[2019-03-11] MEDS: METOPROLOL TARTRATE 25 MG TABLET PO SCH ×2 (08:45→20:38)
[2019-03-11] MEDS: ASPIRIN 81 MG EC TABLET PO SCH (08:45)
[2019-03-11] MEDS: VITAMIN B COMP/VIT C/FOLIC ACID CAPSULE PO SCH (08:45)
[2019-03-11] MEDS: DICLOFENAC SODIUM 1% 100 GM GEL [4GM] TP SCH ×3 (08:46→20:38)
[2019-03-11] MEDS: CALCITRIOL 0.25 MCG CAPSULE PO SCH (08:46)
[2019-03-11] MEDS: EPOETIN ALFA 10,000 UNITS/ML 2 ML VIAL SQ SCH (08:47)
[2019-03-11 09:37] LABS: APPEARANCE,URINE CLEAR (CLEAR); BILIRUBIN,URINE NEGATIVE (NEGATIVE); GLUCOSE, URINE (UA) NEGATIVE (NEGATIVE); KETONES,URINE NEGATIVE (NEGATIVE); LEUKOCYTE ESTERASE ,URINE NEGATIVE (NEGATIVE); NITRATE,URINE NEGATIVE (NEGATIVE); OCCULT BLOOD,URINE NEGATIVE (NEGATIVE); PH,URINE 6.5 (5.0-8.0); PROTEIN,URINE SEE CONFIRM (NEGATIVE); UROBILINOGEN,URINE 0.2 mg/dL (<=1.0)
[2019-03-11 09:55] LABS: SULFOSALICYLIC ACID,URINE 3+ (Negative)
[2019-03-11 09:57] LABS: BACTERIA,URINE Rare /HPF (None Seen); RBC,URINE None Seen /HPF (0-2); SQUAMOUS EPITHELIAL CELL,UR Few /LPF (None Seen); WBC,URINE 0-2 /HPF (0-5)
[2019-03-11 10:56] LABS: CALCIUM, TOTAL 9.1 mg/dL (8.8-10.5); CREATININE 3.89 mg/dL (0.60-1.30); MAGNESIUM 1.7 mg/dL (1.80-2.40); PHOSPHORUS 2.4 mg/dL (2.5-4.9); POTASSIUM 4.3 mmol/L (3.5-5.1)
[2019-03-11] MEDS ORDERED: SODIUM CHLORIDE 0.9% 1,000 ML IV ONE ×2 (11:57→11:58)
[2019-03-11] MEDS: 0.9% SODIUM CHLORIDE 10 ML SYRINGE IVP SCH ×3 (16:00→23:37)
[2019-03-11 16:42] VITALS: BP 144/79
[2019-03-11] MEDS: SOD FERRIC GLUC COMPLX/SUCROSE 125 MG in SODIUM CHLORIDE 0.9% 100 ML IV PRN (16:55)
[2019-03-11] MEDS: CALCITRIOL 1 MCG/ML AMP IVP SCH (16:57)
[2019-03-11 20:35] VITALS: BP 135/70
[2019-03-11] MEDS: PANTOPRAZOLE SODIUM 40 MG DR TABLET PO SCH (20:37)
[2019-03-11] MEDS: ATORVASTATIN CALCIUM 40 MG TABLET PO SCH (20:38)
[2019-03-11] MEDS: CHLORHEXIDINE GLUCONATE 4% 118 ML TOPICAL LIQUID TP SCH (20:38)
[2019-03-11] MEDS: SENNA 187 MG TABLET PO SCH (20:38)
[2019-03-11] MEDS: DOXAZOSIN MESYLATE 2 MG TABLET PO SCH (20:38)
[2019-03-11] MEDS: MELATONIN 3 MG TABLET PO PRN (23:37)
[2019-03-12] VITALS: BP 120/69
[2019-03-12 08:00] VITALS: BP 128/69
[2019-03-12] MEDS: 0.9% SODIUM CHLORIDE 10 ML SYRINGE IVP SCH ×2 (08:12→15:25)
[2019-03-12] MEDS: DICLOFENAC SODIUM 1% 100 GM GEL [4GM] TP SCH ×3 (08:12→21:07)
[2019-03-12] MEDS: VITAMIN B COMP/VIT C/FOLIC ACID CAPSULE PO SCH (08:13)
[2019-03-12] MEDS: DOCUSATE SODIUM 100 MG CAPSULE PO SCH ×2 (08:13→21:06)
[2019-03-12] MEDS: HydrALAZINE HCL 50 MG TABLET PO SCH ×3 (08:13→21:06)
[2019-03-12] MEDS: AmLODIPine BESYLATE 10 MG TABLET PO SCH (08:13)
[2019-03-12] MEDS: HEPARIN SODIUM,PORCINE 5,000 UNITS/ML VIAL SQ SCH ×3 (08:13→21:06)
[2019-03-12] MEDS: ASPIRIN 81 MG EC TABLET PO SCH (08:13)
[2019-03-12] MEDS: METOPROLOL TARTRATE 25 MG TABLET PO SCH ×2 (08:13→21:07)
[2019-03-12] MEDS: CALCITRIOL 0.25 MCG CAPSULE PO SCH (08:13)
[2019-03-12 15:32] VITALS: BP 116/67
[2019-03-12] MEDS: ATORVASTATIN CALCIUM 40 MG TABLET PO SCH (21:06)
[2019-03-12] MEDS: SENNA 187 MG TABLET PO SCH (21:07)
[2019-03-12] MEDS: CHLORHEXIDINE GLUCONATE 4% 118 ML TOPICAL LIQUID TP SCH (21:07)
[2019-03-12] MEDS: DOXAZOSIN MESYLATE 2 MG TABLET PO SCH (21:07)
[2019-03-12] MEDS: PANTOPRAZOLE SODIUM 40 MG DR TABLET PO SCH (21:07)
[2019-03-12 21:12] VITALS: BP 149/94
[2019-03-12] MEDS: MELATONIN 3 MG TABLET PO PRN (22:23)
[2019-03-12] MEDS: DOCUSATE SODIUM 283 MG/5 ML MINI-ENEMA PR PRN (22:24)
[2019-03-13 00:03] VITALS: BP 147/85
[2019-03-13] MEDS: ACETAMINOPHEN 325 MG TABLET PO PRN ×2 (00:03→11:33)
[2019-03-13] MEDS: 0.9% SODIUM CHLORIDE 10 ML SYRINGE IVP SCH ×3 (00:05→16:50)
[2019-03-13 06:55] LABS: BASOPHILS % (AUTO) 0.4 % (0.0-2.0); EOSINOPHILS % (AUTO) 1.1 % (1.0-6.0); HEMATOCRIT 25.2 % (36-46); HEMOGLOBIN 8.1 g/dL (12.0-16.0); LYMPHOCYTES # (AUTO) 1.4 K/uL (1.0-4.8); LYMPHOCYTES % (AUTO) 10.7 % (22.0-44.0); MEAN CORPUSCULAR HEMOGLOBIN 27.1 pg (26.0-34.0); MEAN CORPUSCULAR VOLUME 85 fL (80-100); MONOCYTES % (AUTO) 7.3 % (2.0-9.0); NEUTROPHILS # (AUTO) 10.5 K/uL (1.8-7.7); NEUTROPHILS % (AUTO) 80.5 % (40.0-70.0); PLATELET COUNT (AUTO) 222 K/uL (150-450); RED BLOOD CELL COUNT(AUTO) 2.97 MIL/uL (4.00-5.20); RED CELL DISTRIBUTION WIDTH 17.6 % (11.5-14.5)
[2019-03-13 07:21] LABS: CALCIUM, TOTAL 9.4 mg/dL (8.8-10.5); CREATININE 3.7 mg/dL (0.60-1.30); MAGNESIUM 1.6 mg/dL (1.80-2.40); POTASSIUM 3.5 mmol/L (3.5-5.1)
[2019-03-13] MEDS: DICLOFENAC SODIUM 1% 100 GM GEL [4GM] TP SCH ×3 (09:03→22:06)
[2019-03-13] MEDS: HEPARIN SODIUM,PORCINE 5,000 UNITS/ML VIAL SQ SCH ×3 (09:04→22:06)
[2019-03-13] MEDS: VITAMIN B COMP/VIT C/FOLIC ACID CAPSULE PO SCH (09:04)
[2019-03-13] MEDS: CALCITRIOL 0.25 MCG CAPSULE PO SCH (09:04)
[2019-03-13] MEDS: DOCUSATE SODIUM 100 MG CAPSULE PO SCH ×2 (09:04→22:06)
[2019-03-13] MEDS: HydrALAZINE HCL 50 MG TABLET PO SCH ×3 (09:05→22:05)
[2019-03-13] MEDS: ASPIRIN 81 MG EC TABLET PO SCH (09:05)
[2019-03-13] MEDS: AmLODIPine BESYLATE 10 MG TABLET PO SCH (09:05)
[2019-03-13] MEDS: METOPROLOL TARTRATE 25 MG TABLET PO SCH ×2 (09:05→22:05)
[2019-03-13 11:17] VITALS: BP 138/79
[2019-03-13 15:45] VITALS: BP 132/74
[2019-03-13] MEDS: SENNA 187 MG TABLET PO SCH (21:00)
[2019-03-13] MEDS: ATORVASTATIN CALCIUM 40 MG TABLET PO SCH (22:05)
[2019-03-13] MEDS: PANTOPRAZOLE SODIUM 40 MG DR TABLET PO SCH (22:06)
[2019-03-13] MEDS: CHLORHEXIDINE GLUCONATE 4% 118 ML TOPICAL LIQUID TP SCH (22:06)
[2019-03-13] MEDS: MELATONIN 3 MG TABLET PO PRN (22:06)
[2019-03-13] MEDS: DOXAZOSIN MESYLATE 2 MG TABLET PO SCH (22:06)
[2019-03-14] VITALS: BP 134/81
[2019-03-14] MEDS: 0.9% SODIUM CHLORIDE 10 ML SYRINGE IVP SCH ×4 (00:37→23:35)
[2019-03-14] MEDS: ACETAMINOPHEN 325 MG TABLET PO PRN ×3 (02:39→20:30)
[2019-03-14] MEDS ORDERED: NEPHROCAP PO (04:56)
[2019-03-14] MEDS ORDERED: ATOR40TA28 PO (04:56)
[2019-03-14 07:19] VITALS: BP 135/73
[2019-03-14] MEDS: HEPARIN SODIUM,PORCINE 5,000 UNITS/ML VIAL SQ SCH ×3 (08:27→20:30)
[2019-03-14] MEDS: ASPIRIN 81 MG EC TABLET PO SCH (08:28)
[2019-03-14] MEDS: DICLOFENAC SODIUM 1% 100 GM GEL [4GM] TP SCH ×3 (08:28→20:27)
[2019-03-14] MEDS: CALCITRIOL 0.25 MCG CAPSULE PO SCH (08:28)
[2019-03-14] MEDS: VITAMIN B COMP/VIT C/FOLIC ACID CAPSULE PO SCH (08:28)
[2019-03-14] MEDS: EPOETIN ALFA 10,000 UNITS/ML VIAL SQ SCH (08:28)
[2019-03-14] MEDS: AmLODIPine BESYLATE 10 MG TABLET PO SCH (08:32)
[2019-03-14] MEDS: METOPROLOL TARTRATE 25 MG TABLET PO SCH ×2 (08:32→20:29)
[2019-03-14] MEDS: HydrALAZINE HCL 50 MG TABLET PO SCH ×3 (08:32→20:29)
[2019-03-14] MEDS: DOCUSATE SODIUM 100 MG CAPSULE PO SCH ×3 (08:32→20:46)
[2019-03-14] MEDS ORDERED: SODIUM CHLORIDE 0.9% 2,000 ML IV ONE (12:00)
[2019-03-14] MEDS ORDERED: HEPARIN SODIUM,PORCINE 1,000 UNITS/ML VIAL IVP ONE (15:23)
[2019-03-14] MEDS ORDERED: MAGNESIUM SULFATE 2 GM/WATER 50 ML IV ONE (16:00)
[2019-03-14] MEDS ORDERED: SODIUM CHLORIDE 0.9% 100 ML ONE (17:07)
[2019-03-14 17:13] VITALS: BP 160/97
[2019-03-14] MEDS: SOD FERRIC GLUC COMPLX/SUCROSE 125 MG in SODIUM CHLORIDE 0.9% 100 ML IV PRN (17:18)
[2019-03-14] MEDS: CALCITRIOL 1 MCG/ML AMP IVP SCH (17:19)
[2019-03-14] MEDS: PANTOPRAZOLE SODIUM 40 MG DR TABLET PO SCH (20:29)
[2019-03-14] MEDS: SENNA 187 MG TABLET PO SCH ×2 (20:29→20:46)
[2019-03-14] MEDS: ATORVASTATIN CALCIUM 40 MG TABLET PO SCH (20:29)
[2019-03-14] MEDS: DOXAZOSIN MESYLATE 2 MG TABLET PO SCH (20:29)
[2019-03-14] MEDS: MELATONIN 3 MG TABLET PO PRN (20:29)
[2019-03-14 20:30] VITALS: BP 158/92
[2019-03-14] MEDS: CHLORHEXIDINE GLUCONATE 4% 118 ML TOPICAL LIQUID TP SCH (20:53)
[2019-03-14 21:30] VITALS: BP 148/77
[2019-03-14 23:23] VITALS: BP 145/76
[2019-03-15] MEDS: ACETAMINOPHEN 325 MG TABLET PO PRN (04:52)
[2019-03-15 07:25] VITALS: BP 135/78
[2019-03-15] MEDS: 0.9% SODIUM CHLORIDE 10 ML SYRINGE IVP SCH ×3 (08:24→23:05)
[2019-03-15] MEDS: ASPIRIN 81 MG EC TABLET PO SCH (08:25)
[2019-03-15] MEDS: CALCITRIOL 0.25 MCG CAPSULE PO SCH (08:25)
[2019-03-15] MEDS: METOPROLOL TARTRATE 25 MG TABLET PO SCH ×2 (08:27→20:16)
[2019-03-15] MEDS: AmLODIPine BESYLATE 10 MG TABLET PO SCH (08:27)
[2019-03-15] MEDS: HydrALAZINE HCL 50 MG TABLET PO SCH ×3 (08:27→20:16)
[2019-03-15] MEDS: VITAMIN B COMP/VIT C/FOLIC ACID CAPSULE PO SCH (08:27)
[2019-03-15] MEDS: HEPARIN SODIUM,PORCINE 5,000 UNITS/ML VIAL SQ SCH ×3 (08:27→20:16)
[2019-03-15] MEDS: DOCUSATE SODIUM 100 MG CAPSULE PO SCH ×2 (08:28→20:16)
[2019-03-15] MEDS: DICLOFENAC SODIUM 1% 100 GM GEL [4GM] TP SCH ×3 (08:32→20:17)
[2019-03-15 16:05] VITALS: BP 131/84
[2019-03-15] MEDS: DOXAZOSIN MESYLATE 2 MG TABLET PO SCH (20:16)
[2019-03-15] MEDS: PANTOPRAZOLE SODIUM 40 MG DR TABLET PO SCH (20:16)
[2019-03-15] MEDS: ATORVASTATIN CALCIUM 40 MG TABLET PO SCH (20:16)
[2019-03-15] MEDS: SENNA 187 MG TABLET PO SCH (20:16)
[2019-03-15] MEDS: CHLORHEXIDINE GLUCONATE 4% 118 ML TOPICAL LIQUID TP SCH (20:17)
[2019-03-15] MEDS: MELATONIN 3 MG TABLET PO PRN (20:18)
[2019-03-16] VITALS: BP 130/67
[2019-03-16 07:30] VITALS: BP 142/80
[2019-03-16] MEDS: HEPARIN SODIUM,PORCINE 5,000 UNITS/ML VIAL SQ SCH ×3 (08:52→20:07)
[2019-03-16] MEDS: DICLOFENAC SODIUM 1% 100 GM GEL [4GM] TP SCH ×3 (08:53→20:10)
[2019-03-16] MEDS: EPOETIN ALFA 10,000 UNITS/ML VIAL SQ SCH (08:53)
[2019-03-16] MEDS: DOCUSATE SODIUM 100 MG CAPSULE PO SCH ×2 (08:53→20:08)
[2019-03-16] MEDS: AmLODIPine BESYLATE 10 MG TABLET PO SCH ×2 (08:53→09:00)
[2019-03-16] MEDS: VITAMIN B COMP/VIT C/FOLIC ACID CAPSULE PO SCH (08:53)
[2019-03-16] MEDS: 0.9% SODIUM CHLORIDE 10 ML SYRINGE IVP SCH ×2 (08:54→17:47)
[2019-03-16] MEDS: CALCITRIOL 0.25 MCG CAPSULE PO SCH (08:55)
[2019-03-16] MEDS: ASPIRIN 81 MG EC TABLET PO SCH (08:56)
[2019-03-16] MEDS: METOPROLOL TARTRATE 25 MG TABLET PO SCH ×2 (09:00→20:09)
[2019-03-16] MEDS: HydrALAZINE HCL 50 MG TABLET PO SCH ×3 (09:00→20:07)
[2019-03-16] MEDS ORDERED: SODIUM CHLORIDE 0.9% 2,000 ML IV ONE (11:55)
[2019-03-16] MEDS: CALCITRIOL 1 MCG/ML AMP IVP SCH (16:00)
[2019-03-16] MEDS ORDERED: HEPARIN SODIUM,PORCINE 1,000 UNITS/ML VIAL ONE (18:10)
[2019-03-16] MEDS: DOCUSATE SODIUM 283 MG/5 ML MINI-ENEMA PR PRN (20:04)
[2019-03-16] MEDS: ATORVASTATIN CALCIUM 40 MG TABLET PO SCH (20:07)
[2019-03-16] MEDS: DOXAZOSIN MESYLATE 2 MG TABLET PO SCH (20:08)
[2019-03-16] MEDS: SENNA 187 MG TABLET PO SCH (20:08)
[2019-03-16] MEDS: PANTOPRAZOLE SODIUM 40 MG DR TABLET PO SCH (20:08)
[2019-03-16] MEDS: CHLORHEXIDINE GLUCONATE 4% 118 ML TOPICAL LIQUID TP SCH (20:09)
[2019-03-16 23:00] VITALS: BP 142/82
[2019-03-17] MEDS: 0.9% SODIUM CHLORIDE 10 ML SYRINGE IVP SCH ×3 (00:38→17:01)
[2019-03-17] MEDS: SOD FERRIC GLUC COMPLX/SUCROSE 125 MG in SODIUM CHLORIDE 0.9% 100 ML IV PRN (00:38)
[2019-03-17 07:20] VITALS: BP 139/79
[2019-03-17] MEDS: CALCITRIOL 0.25 MCG CAPSULE PO SCH (09:11)
[2019-03-17] MEDS: HEPARIN SODIUM,PORCINE 5,000 UNITS/ML VIAL SQ SCH ×3 (09:12→20:09)
[2019-03-17] MEDS: HydrALAZINE HCL 50 MG TABLET PO SCH ×3 (09:12→20:10)
[2019-03-17] MEDS: VITAMIN B COMP/VIT C/FOLIC ACID CAPSULE PO SCH (09:12)
[2019-03-17] MEDS: METOPROLOL TARTRATE 25 MG TABLET PO SCH ×2 (09:12→20:09)
[2019-03-17] MEDS: ASPIRIN 81 MG EC TABLET PO SCH (09:13)
[2019-03-17] MEDS: AmLODIPine BESYLATE 10 MG TABLET PO SCH (09:13)
[2019-03-17] MEDS: DICLOFENAC SODIUM 1% 100 GM GEL [4GM] TP SCH ×3 (09:13→20:08)
[2019-03-17] MEDS: DOCUSATE SODIUM 100 MG CAPSULE PO SCH ×2 (09:13→20:09)
[2019-03-17 16:07] VITALS: BP 157/97
[2019-03-17] MEDS: DOCUSATE SODIUM 283 MG/5 ML MINI-ENEMA PR PRN (18:39)
[2019-03-17] MEDS: CHLORHEXIDINE GLUCONATE 4% 118 ML TOPICAL LIQUID TP SCH (20:08)
[2019-03-17] MEDS: ATORVASTATIN CALCIUM 40 MG TABLET PO SCH (20:09)
[2019-03-17] MEDS: PANTOPRAZOLE SODIUM 40 MG DR TABLET PO SCH (20:09)
[2019-03-17] MEDS: SENNA 187 MG TABLET PO SCH (20:10)
[2019-03-17] MEDS: DOXAZOSIN MESYLATE 2 MG TABLET PO SCH (20:10)
[2019-03-18] MEDS: 0.9% SODIUM CHLORIDE 10 ML SYRINGE IVP SCH (00:32)
[2019-03-18 05:45] VITALS: BP 131/82
[2019-03-18] MEDS ORDERED: PANT40TA25 PO (07:12)
[2019-03-18] MEDS ORDERED: DICL2100G TP (07:14)
[2019-03-18] MEDS ORDERED: DSS100 PO (07:14)
[2019-03-18 08:22] LABS: BASOPHILS % (AUTO) 0.7 % (0.0-2.0); EOSINOPHILS % (AUTO) 2.5 % (1.0-6.0); HEMATOCRIT 28.1 % (36-46); HEMOGLOBIN 9.1 g/dL (12.0-16.0); LYMPHOCYTES # (AUTO) 1.3 K/uL (1.0-4.8); LYMPHOCYTES % (AUTO) 19.9 % (22.0-44.0); MEAN CORPUSCULAR HEMOGLOBIN 28.1 pg (26.0-34.0); MEAN CORPUSCULAR HGB CONC 32.3 G/dL (31.0-37.0); MEAN CORPUSCULAR VOLUME 87 fL (80-100); MONOCYTES # (AUTO) 0.6 K/uL (0.1-1.0); MONOCYTES % (AUTO) 9.4 % (2.0-9.0); NEUTROPHILS # (AUTO) 4.4 K/uL (1.8-7.7); NEUTROPHILS % (AUTO) 67.5 % (40.0-70.0); PLATELET COUNT (AUTO) 194 K/uL (150-450); RED BLOOD CELL COUNT(AUTO) 3.24 MIL/uL (4.00-5.20); RED CELL DISTRIBUTION WIDTH 16.7 % (11.5-14.5)
[2019-03-18 08:52] LABS: CALCIUM, TOTAL 9.7 mg/dL (8.8-10.5); CREATININE 3.2 mg/dL (0.60-1.30); MAGNESIUM 1.7 mg/dL (1.80-2.40); PHOSPHORUS 3.1 mg/dL (2.5-4.9); POTASSIUM 3.7 mmol/L (3.5-5.1)
[2019-03-18 09:00] VITALS: BP 139/78
[2019-03-18] MEDS ORDERED: SODIUM CHLORIDE 0.9% 1,000 ML IV ONE ×2 (09:35)
[2019-03-18] MEDS: HydrALAZINE HCL 50 MG TABLET PO SCH ×2 (11:10→17:30)
[2019-03-18] MEDS: DOCUSATE SODIUM 100 MG CAPSULE PO SCH (11:10)
[2019-03-18] MEDS: AmLODIPine BESYLATE 10 MG TABLET PO SCH (11:10)
[2019-03-18] MEDS: EPOETIN ALFA 10,000 UNITS/ML VIAL SQ SCH (11:10)
[2019-03-18] MEDS: VITAMIN B COMP/VIT C/FOLIC ACID CAPSULE PO SCH (11:10)
[2019-03-18] MEDS: HEPARIN SODIUM,PORCINE 5,000 UNITS/ML VIAL SQ SCH ×2 (11:10→17:30)
[2019-03-18] MEDS: CALCITRIOL 0.25 MCG CAPSULE PO SCH (11:10)
[2019-03-18] MEDS: ASPIRIN 81 MG EC TABLET PO SCH (11:10)
[2019-03-18] MEDS: METOPROLOL TARTRATE 25 MG TABLET PO SCH (11:11)
[2019-03-18] MEDS: DICLOFENAC SODIUM 1% 100 GM GEL [4GM] TP SCH ×2 (11:11→16:00)
[2019-03-18] MEDS ORDERED: SODIUM CHLORIDE 0.9% 100 ML ONE (17:03)
[2019-03-18 17:27] VITALS: BP 145/82
[2019-03-18] MEDS: CALCITRIOL 1 MCG/ML AMP IVP SCH (17:32)
[2019-03-18] MEDS: SOD FERRIC GLUC COMPLX/SUCROSE 125 MG in SODIUM CHLORIDE 0.9% 100 ML IV PRN (17:32)
== END 2019-03-18 19:45 | disposition home health service (06) | DRG 56 ==
LOC: 2WR 13:40
PROVIDERS: ADMIT Physical Medicine & Rehabilitation; ATTEND Physical Medicine & Rehabilitation
PROC: 5A1D70Z Performance of Urinary Filtration, Intermittent, Less than 6 Hours Per Day (ICD-10-PCS; principal; 2019-03-03)
PROC: 5A1D70Z Performance of Urinary Filtration, Intermittent, Less than 6 Hours Per Day (ICD-10-PCS; 2019-03-04)
PROC: 5A1D70Z Performance of Urinary Filtration, Intermittent, Less than 6 Hours Per Day (ICD-10-PCS; 2019-03-07)
PROC: 5A1D70Z Performance of Urinary Filtration, Intermittent, Less than 6 Hours Per Day (ICD-10-PCS; 2019-03-09)
PROC: 5A1D70Z Performance of Urinary Filtration, Intermittent, Less than 6 Hours Per Day (ICD-10-PCS; 2019-03-11)
PROC: 5A1D70Z Performance of Urinary Filtration, Intermittent, Less than 6 Hours Per Day (ICD-10-PCS; 2019-03-14)
PROC: 5A1D70Z Performance of Urinary Filtration, Intermittent, Less than 6 Hours Per Day (ICD-10-PCS; 2019-03-16)
PROC: 5A1D70Z Performance of Urinary Filtration, Intermittent, Less than 6 Hours Per Day (ICD-10-PCS; 2019-03-18)
DX: I69.354 Hemiplegia and hemiparesis following cerebral infarction affecting left non-dominant side (principal); I63.9 Cerebral infarction, unspecified; N18.6 End stage renal disease; E46 Unspecified protein-calorie malnutrition; E87.1 Hypo-osmolality and hyponatremia; I12.0 Hypertensive chronic kidney disease with stage 5 chronic kidney disease or end stage renal disease; N39.0 Urinary tract infection, site not specified; Z68.1 Body mass index [BMI] 19.9 or less, adult; D63.8 Anemia in other chronic diseases classified elsewhere; E11.22 Type 2 diabetes mellitus with diabetic chronic kidney disease; E78.5 Hyperlipidemia, unspecified; E83.39 Other disorders of phosphorus metabolism; E83.42 Hypomagnesemia; G47.00 Insomnia, unspecified; K73.9 Chronic hepatitis, unspecified; Z79.899 Other long term (current) drug therapy; Z80.42 Family history of malignant neoplasm of prostate; Z99.2 Dependence on renal dialysis; B96.20 Unspecified Escherichia coli [E. coli] as the cause of diseases classified elsewhere; K59.00 Constipation, unspecified; M16.0 Bilateral primary osteoarthritis of hip; M19.012 Primary osteoarthritis, left shoulder; N25.0 Renal osteodystrophy; R29.6 Repeated falls; Z91.81 History of falling; Z79.82 Long term (current) use of aspirin; R32 Unspecified urinary incontinence; W18.39XA Other fall on same level, initial encounter; Y93.89 Activity, other specified; Y92.89 Other specified places as the place of occurrence of the external cause; Y99.8 Other external cause status
CPT/HCPCS: 70450; 73503; 82271; 83735; 84100; 84443; 87081; 87340; 92507; 92508; 92523; 97110; 97112; 97116; 97150; 97163; 97166; 97530; 97535; 99366; J0636; J0885; J1644; J2916; J3475; J3490; J7030; J7050; J7060